=== PATIENT | male | born 1965 | race Caucasian/White ===

== ENCOUNTER 2019-04-11 11:42 | Observation (INO) | payer OTHER ==
--- NOTE | 2019-04-11 13:07 | RAD ---
XR Chest 1 View Portable HISTORY: Preoperative evaluation COMPARISON: 07/29/2014 FINDINGS: The heart size is normal. The lungs are well expanded without focal areas of consolidation, pneumothorax or pleural effusions. IMPRESSION: No radiographic evidence of acute cardiopulmonary process.
[2019-04-11 13:14] LABS: Phosphorus 2.2 mg/dL (2.3-4.7)
[2019-04-11 13:31] LABS: PTT 24.4 SEC (22.9-36.1); Prothrombin Time 12.7 SEC (12.0-14.7)
--- NOTE | 2019-04-11 13:53 | HP ---
REQUESTING PHYSICIAN: ER physician, Dr. Carlos Weber. HISTORY OF PRESENT ILLNESS: This is a 53-year-old gentleman, who presented to the emergency room in [place] with lower abdominal pain, right groin pain and right testicular pain with swelling. The patient was evaluated in [place] [facility]. An abdominal CT demonstrated a large right inguinal hernia with semi-obstruction of bowel. The ER attempted to reduce the hernia but was unsuccessful. The patient was given multiple doses of IV pain medications which finally helped his pain. The patient reports that he did have a normal bowel movement yesterday. The patient has not passed any gas this morning and reports that he ate chips around 7 o'clock this morning and was not able to keep it down. The patient reports that his abdominal pain and right testicular pain was 10/10. The patient is currently comfortable and reports a pain of 1/10 at this time. The patient does have history of a reported right inguinal hernia that was diagnosed approximately 6 years ago. The patient has not underwent any surgical repair previously. The patient did have a fever of 101.9 at [place] [facility]. PAST MEDICAL HISTORY: Hypertension, uncontrolled, noncompliant with medication. PAST SURGICAL HISTORY: Denies. SOCIAL HISTORY: Drinks socially occasionally, denies any drug use, currently uses chewing tobacco, does not smoke tobacco. CURRENT MEDICATIONS: Aspirin 81 mg daily. ALLERGIES: NO KNOWN DRUG ALLERGIES. REVIEW OF SYSTEMS: A 10-point review of systems is negative unless otherwise indicated in the above HPI. PHYSICAL EXAMINATION: VITAL SIGNS: Blood pressure 169/113, heart rate 82, respirations 18, temperature 98.5, SpO2 96% on room air. GENERAL: Well-appearing, middle aged gentleman, sitting up in hospital bed, in no acute distress. The patient is awake, alert, and oriented. HEENT: Head is atraumatic and normocephalic. Mucous membranes are moist. Mouth exam is normal. NECK: Trachea is midline. Normal range of motion. LUNGS: Bilateral breath sounds clear. No wheezing, rales, or rhonchi. CARDIOVASCULAR: Regular rate, regular rhythm. No murmur. ABDOMEN: Soft, tender in bilateral lower quadrants. No peritoneal signs. Large right inguinal hernia and right scrotal swelling. Tenderness to right testicle. EXTREMITIES: Moves all extremities. Sensation intact. No focal deficits. Distal pulses intact. NEUROLOGIC: No focal deficits. LABORATORY DATA: WBC 8.8, RBC 4.43, hemoglobin 15.3, hematocrit 44.1, MCV 99.6 , MCH 34.5, platelets 239. Coags pending. Sodium 137, potassium 3.4, chloride 101, BUN 6, creatinine 0.88, estimated GFR greater than 90, glucose 160, lactic acid 2.6, calcium 9.1, phosphorus 2.2, magnesium 1.6, total bilirubin 1.4, AST 39, ALT 34, alkaline phosphatase 71. Troponin 0.010. Lipase 12. Urinalysis negative for UTI. DIAGNOSTIC DATA: Chest x-ray; impression, no evidence of acute cardiopulmonary process. Abdominal CT with contrast; impression, incarcerated right inguinal hernia with bowel loops. Dilated small bowel proximal to hernia. Renal lucencies, most likely cysts. ASSESSMENT: 1. Right incarcerated inguinal hernia. 2. Hypokalemia. 3. Uncontrolled hypertension. PLAN: The patient will go to the OR for an open right inguinal hernia repair with mesh. We will replace electrolytes. The patient was examined by Dr. Bellamy in the emergency room. The plan for surgical repair was discussed in detail including the risk. The patient was also instructed that he needs to follow up with his primary care physician regarding his elevated blood pressure as the patient took himself off the blood pressure medication because he felt like it did not help. Job ID: [id number] [facility]
[2019-04-11] MEDS ORDERED: Dextrose 50% Abboject 50 ML SYRINGE SLOW IVP PRN (15:33)
[2019-04-11] MEDS ORDERED: Ondansetron PF 4 MG/2 ML Vial IVP PRN (15:33)
[2019-04-11] MEDS ORDERED: Dextrose 5% in Water 1,000 ML IV PRN (15:33)
[2019-04-11] MEDS ORDERED: Acetaminophen 500 MG TAB PO PRN (15:36)
[2019-04-11 15:45] LABS: Hemoglobin 13.7 g/dL (14.0-18.0); Mean Corpuscular HGB CONC 34.1 g/dL (32.0-36.0); Mean Corpuscular Hemoglobin 34.4 pg (27.0-31.0); Mean Platelet Volume 8.4 fL (7.4-10.4); Platelet Count 204 thou/uL (130-400); RBC Distribution Width 11.5 % (11.5-14.5); Red Blood Cell (RBC) Count 3.98 mill/uL (4.70-6.10); White Blood Cell (WBC) Count 10.5 thou/uL (4.8-10.8)
[2019-04-11 16:10] LABS: Band 23 % (5-11); Large Platelets SLIGHT; Lymphocytes 2 % (21-51); MDiff Complete? YES; Monocytes 2 % (0-10); Neutrophil 73 % (42-75); Platelet Morphology Comment Appears Adequate; RBC Morphology Normal
[2019-04-11] MEDS ORDERED: Potassium Phosphate 30 MMOL in Sodium Chloride 0.9% 500 ML IVPB SCH ×2 (17:30→18:15)
[2019-04-11] MEDS ORDERED: Magnesium Sulfate 2 GM in Sodium Chloride 0.9% 100 ML IVPB SCH (17:30)
[2019-04-11] MEDS ORDERED: Magnesium 2 GM/50 ML 2 GM in Premix Bag 1 BAG IVPB SCH (18:15)
[2019-04-11 18:22] VITALS: BMI 25.7
[2019-04-11] MEDS ORDERED: Morphine 4 MG/ML VIAL SLOW IVP PRN (19:02)
[2019-04-11] MEDS: Sodium Chloride 0.9% 1,000 ML IV SCH (19:09)
--- NOTE | 2019-04-11 23:58 | PRG ---
DATE OF SERVICE: 04/11/2019 SUBJECTIVE: The patient was seen this evening during rounds, sitting up in bed with no signs of acute distress. Reported he had almost no pain after his inguinal hernia was reduced. He has not required any pain medications. He will be n.p.o. at midnight for an inguinal hernia repair on the right side. He was ambulating without difficulties and had no complaints at the time of my evaluation. OBJECTIVE: VITAL SIGNS: Temperature 98.6, pulse 97, respirations 16, oxygen saturation 96% on room air, blood pressure 141/94. GENERAL: Well-appearing, middle-aged male sitting up in bed with no signs of acute distress. PULMONARY: Equal chest rise and fall. Clear breath sounds bilaterally. No signs of acute respiratory distress. CARDIAC: Regular rate and rhythm. No murmurs, gallops, or rubs. GI: Abdomen is soft, nontender, nondistended. EXTREMITIES: 2+ pulses in all extremities. Gross motor and sensation are intact. NEUROLOGIC: GCS is 15. LABORATORY FINDINGS: There are no new laboratory findings to discuss. DIAGNOSTIC FINDINGS: There are no new diagnostic findings to discuss. ASSESSMENT: 1. Incarcerated inguinal hernia, present for the past 6 years intermittently. 2. History of hypertension, noncompliant. PLAN: Continue current diet and pain regimen. Continue amlodipine, started on this hospital admission. The patient will be n.p.o. at midnight. He has IV fluids at 100 an hour. He is to go to the OR tomorrow with Dr. Bellamy. Electrolytes have been replaced. Postoperatively, he will likely be discharged home. Job ID: [id number]
[2019-04-11] MEDS ORDERED: Sodium Chloride 0.9% 1,000 ML IV SCH (23:59)
[2019-04-12 00:44] VITALS: TEMP 98.3
[2019-04-12] MEDS ORDERED: Lidocaine 1% w/Epinephrine 1:100K 20 ML VIAL ONE (06:53)
[2019-04-12] MEDS ORDERED: Bupivacaine PF 0.5% 30 ML VIAL ONE (06:53)
[2019-04-12] MEDS ORDERED: Midazolam HCl 2 mg/2 ml Vial ONE (07:20)
[2019-04-12] MEDS ORDERED: Fentanyl 250 MCG/5 ML VIAL ONE (07:20)
[2019-04-12] MEDS ORDERED: Amlodipine 10 MG TAB PO SCH (09:00)
[2019-04-12] MEDS ORDERED: FLU VACC QS2019-20(6MOS UP)/PF 60 MCG/0.5 ML SYRINGE IM ONE (09:00)
[2019-04-12] MEDS ORDERED: Dexamethasone 20 MG/5 ML VIAL ONE (11:11)
[2019-04-12] MEDS ORDERED: Rocuronium Bromide 10 MG/ML (10ML VIAL) ONE (11:11)
[2019-04-12] MEDS ORDERED: PROPOFOL 200 MG/20 ML VIAL ONE (11:11)
[2019-04-12] MEDS ORDERED: Glycopyrrolate 0.2 MG/ML 5 ML SYRINGE ONE (11:11)
[2019-04-12] MEDS ORDERED: Ondansetron PF 4 MG/2 ML Vial ONE (11:11)
[2019-04-12] MEDS ORDERED: ePHEDrine/0.9% NaCl/PF SYRINGE 50 mg/10 ml ONE (11:11)
--- NOTE | 2019-04-12 11:42 | OP ---
DATE OF PROCEDURE: 04/12/2019 PREOPERATIVE DIAGNOSIS: Large right inguinal hernia. POSTOPERATIVE DIAGNOSIS: Right indirect large inguinal hernia. PROCEDURE PERFORMED: Right inguinal herniorrhaphy with PerFix light plug mesh. ANESTHESIA: General endotracheal. ESTIMATED BLOOD LOSS: 5 mL. FLUIDS GIVEN: 800 mL of crystalloids. COUNTS: Sponge and instrument counts were verified as correct x2. COMPLICATIONS: None apparent at the time of operation. INDICATIONS FOR OPERATION: A 53-year-old man, presented with a large nonreducible bulge in right groin mass, which was painful, 02/16. In the emergent department yesterday, this was reduced. The patient was brought to the operating room today for an inguinal herniorrhaphy. Findings are consistent with the large indirect right inguinal hernia. No direct hernia was seen on examination. DESCRIPTION OF PROCEDURE: Informed consent was obtained from the patient. He was brought to the operating room and placed in supine position. Following general anesthesia, the right groin was widely sterilely prepped and draped in usual fashion including the scrotum. A small right oblique groin incision was made using 15 scalpel. Incision was carried through subcutaneous tissues maintaining hemostasis using cautery. Superficial vessels were divided and cauterized for hemostasis. Mireille and Camper fascia were opened along the line of the incision. The external oblique aponeurosis was then incised along the running fibers using a fresh scalpel. The hernia sac and cord were dissected free from surrounding structures and encircled at the pubic tubercle using a Livingston drain. The hernia sac was then dissected off the remainder of the cord structures. Care was taken to avoid injuries to the vas deferens. The inguinal floor was thoroughly examined and no direct hernia was noted. The large indirect hernia sac was freed up from the cord structures and then ligated at the high inguinal position using a stick tie of 2-0 Vicryl and doubly ligated with a free tie of 2-0 silk. The hernia sac was passed off the operative field transmission to Pathology. The PerFix plug mesh was brought into the operative field. The plug was then placed in the internal ring, secured around the internal oblique aponeurosis. The patch mesh was then brought again into the operative field. The apex was sutured to the pubic tubercle. This was achieved using 2-0 Prolene. It was sutured laterally to the shelving portion of the external oblique aponeurosis and medially to the internal oblique aponeurosis. The testicle was withdrawn into the scrotal sac. Finding no other pathology. Good hemostasis was noted. The Andrew drain was removed. An external oblique fascia was approximated over the cord structures using a running stitch of 2-0 Prolene. Mireille fascia was approximated using a running stitch of 2-0 Vicryl. The operative site was copiously infiltrated with 0.25% Marcaine with epinephrine prior to closure. Skin incision was closed using a running stitch of 4-0 Monocryl suture in a subcuticular fashion. Dermabond was applied over incisional closure. The patient tolerated the operation without any apparent complication and was returned to recovery room in satisfactory condition. Job ID: [id number]
[2019-04-12] MEDS: Sodium Chloride 0.9% 1,000 ML IV SCH (12:29)
[2019-04-12] MEDS ORDERED: Amlodipine 10 MG TAB ONE (13:16)
[2019-04-12] MEDS ORDERED: traMADol HCl 50 MG TAB PO PRN (13:23)
[2019-04-12 13:27] VITALS: BP 143/97
[2019-04-13] MEDS ORDERED: Aspirin 81 mg Enteric Coated Tablet PO SCH (09:00)
== END 2019-04-12 18:11 | disposition home or self-care (01) ==
LOC: ERS 11:42 → SURG B 13:17 → ERS 16:57
PROVIDERS: ADMIT Surgery; ATTEND Surgery
PROC: 0YU50JZ Supplement Right Inguinal Region with Synthetic Substitute, Open Approach (ICD-10-PCS; principal; 2019-04-12)
DX: K40.30 Unilateral inguinal hernia, with obstruction, without gangrene, not specified as recurrent (principal); I10 Essential (primary) hypertension; F17.220 Nicotine dependence, chewing tobacco, uncomplicated; E87.6 Hypokalemia; Z79.82 Long term (current) use of aspirin; Z91.19 Patient's noncompliance with other medical treatment and regimen
CPT/HCPCS: 36415; 71045; 83735; 84100; 85610; 85730; 88302; 93005; 93010; 96361; 96365; 96366; 96367; 99284; C1781; G0378; J0131; J0690; J1100; J2250; J2405; J2704; J3010; J3475; J7050; S0020